=== PATIENT | female | born 1995 | race Caucasian/White ===

== ENCOUNTER 2018-06-25 16:42 | Emergency (ER) | payer OTHER ==
[~2018-06-25 16:42] MED LIST: HYDR-317 PO; IBUP600T22 PO; METH4TAB66 PO; MINO100T8 PO; MINO50CA21 GT
[2018-06-25] MEDS ORDERED: SPIR100T33 PO (16:55)
[2018-06-25] MEDS ORDERED: NOR25 PO (16:55)
[2018-06-25] MEDS ORDERED: SERT-1 PO (16:55)
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
[2018-06-25] MEDS ORDERED: ACETAMINOPHEN 325 MG TAB PO ONE (17:40)
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
[2018-06-25 18:00] VITALS: BP 106/79
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
[2018-06-25] MEDS ORDERED: CYCL10TA29 PO (18:13)
== END 2018-06-25 18:30 | disposition home or self-care (01) ==
LOC: ER 17:05
DX: S16.1XXA Strain of muscle, fascia and tendon at neck level, initial encounter (principal); V49.40XA Driver injured in collision with unspecified motor vehicles in traffic accident, initial encounter
CPT/HCPCS: 70450; 72125; 81025; 99284; L0172